=== PATIENT | female | born 1995 | race Caucasian/White ===

== ENCOUNTER 2023-09-04 21:13 | Emergency (ER) | payer OTHER, SELFPAY ==
[2023-09-04 21:28] VITALS: BP 118/67; PULSE 83; RESP 16; TEMP 36.7; O2SAT 99; BMI 23.4
[2023-09-05 04:07] VITALS: BP 103/62; PULSE 77; RESP 16; TEMP 36.2; O2SAT 97
[2023-09-05 06:12] VITALS: BP 116/62; PULSE 69; RESP 16; TEMP 36.4; O2SAT 98
[2023-09-05 06:19] LABS: Appearance Urine Clear; Color Urine Yellow; Glucose Urine UA Negative (Negative); Leukocyte Esterase Urine Negative (Negative); Nitrite Urine Negative (Negative); PH 6.5 (5.0-9.0); Specific Gravity - Urine 1.025 (1.005-1.025); Urine Blood Negative (Negative); Urine Ketones Negative (Negative); Urine Protein Negative (Neg-Trace)
[2023-09-05 06:20] LABS: UPreg QC Valid YES; Urine Pregnancy WEAKLY POSITIVE (NEGATIVE)
--- NOTE | 2023-09-05 06:42 | ED.MEDCLEAR ---
HPI - Medical Clearance General Chief complaint: Medical Clearance Stated complaint: med refill Time Seen by Provider: 09/05/23 06:41 Source: family (significant other ) Mode of arrival: ambulatory Limitations: other (poor historian not participating in hx and pe ) History of Present Illness ED Provider: Wilver CASTELAN HPI Narrative: 27-year-old female hx of opiate use disorder , recently released from incarceration presents to the emergency department demanding methadone. She states she wants methadone now. When I asked her when she last took it she states I do not know. She tells me she last used opiates yesterday ?behind a building?. I asked her if she is and she tells me yes she found out when she was in care home, when I asked her if she is receiving care she tells me yes but then tells me she has not followed up by an OBGYN and has not seen a doctor for this . She states she is taking vitamins intermittently. Patient upset by me asking her questions, she is asleep and does not want to wake up. Significant other in the bed bed snoring and difficult to arouse. Patient becomes angry, awake significant other up and states she does not want to stay here after I told her that this process would require me to speak to recovery to initiate methadone and to give her follow-up if this is what she wanted. She states she has been waiting long enough and she does not want to wait here. She states this places awful and states I am going to [facility] . She is refusing to talk to me. Begins to scream in the department, security called to the bedside. Patient is being uncooperative does not want to slip box changer, does not want to stay in this hospital. States she does not want the methadone from here and she will go find it somewhere else. Made comments to the charge nurse that she wanted to go outside and use as well as smoke cigarettes. We explained to her that this is not allowed on hospital grounds. Patient very angry escorted out by security due to being verbally aggressive, and threatening to staff members. Refusing care at this facility. Did not endorse SI or HI to nursing or mysef. Related Information Allergies Allergy/AdvReac Type Severity Reaction Status Date / Time No Known Allergies Allergy Verified 09/04/23 21:32 Review of Systems Review of Systems: Yes Other (Refusing to answer ) [facility] Past Medical History Attestation statement: The following information was validated with the patient. Source: old records reviewed and nursing notes reviewed Social History Social History Smoked in Last 30 Days: Yes Use of substances other than those prescribed or required for medical reasons: Yes Substance Use Type: Heroin Substance Use Frequency Other:: pt just used yesterday after getting out of care home pt waiting for her methado Last Used Substance: Hours (ago) Any prior treatment program specific to substance use: No Advance Directives: No Advance Directives Information Provided: No Do you have a plan to hurt others: No Plan Physical Exam Vital Signs: Vital Signs: Last Vital Signs Temp 97.5 F 09/05/23 06:12 Pulse 69 09/05/23 06:12 Resp 16 09/05/23 06:12 BP 116/62 09/05/23 06:12 Pulse Ox 98 09/05/23 06:12 O2 Del Method Room Air 09/05/23 06:12 BMI result Body Mass Index 23.4 vss Appearance: Alert.? Oriented X3.? No acute distress.? Head: Normocephalic, atraumatic Eyes: Pupils equal, round and reactive to light.? Neck: Normal inspection.? Neck supple.? Respiratory: No respiratory distress. Skin: Normal skin turgor.? Extremities: 5/5 strength to bilateral upper and lower extremities Neuro: Oriented X 3.? No motor deficit.? Patient got up and refused futher care and examination Course Reevaluation(s) Reevaluation #1: Weakly + urine preg --> patient eloped and was assisted by security as she was verbally aggressive and inappropriate. Time: 07:31 Medical Decision Making Medical Decision Making [facility] Narrative: 704 27 yo f presents demanding methadone now PE- hands off exam- benign Likely opiate abuse and ? ( unclear ) also concerns for misscairage due to active using and poor care. Plan- Labs ( CBC, CMP, HCG), US ( due to weakly positive urine preg ), methadone counseling due to and manager recovery consult to discuss initiating methadone and methadone follow up care. Patient refused all the above Differential Diagnosis Differential Diagnoses: The differential diagnosis associated with the presentation includes Likely opiate abuse and ? ( unclear ) also concerns for misscairage due to active using and poor care. Admission/Observation Consideration of admission/observation: Escalation of care including admission/observation considered unlikely but possible if psych/recovery feels its necessary Lab Data MDM Lab Attestation statement: I reviewed the patient's lab results. Labs: Lab Results 09/05/23 Range/Units 06:11 Urine Color Yellow Urine Appearance Clear Urine pH 6.5 (5.0-9.0) Ur Specific [place] 1.025 (1.005-1.025) Urine Protein Negative (Neg-Trace) mg/dL Urine Glucose (UA) Negative (Negative) mg/dL Urine Ketones Negative (Negative) mg/dL Urine Blood Negative (Negative) Urine Nitrite Negative (Negative) Ur Leukocyte Esterase Negative (Negative) Urine Test WEAKLY POSITIVE H (NEGATIVE) Independent Historian Clinical information obtained from an independent historian. History obtained from or confirmed by: Other (Significant other ( male) ) Chronic Conditions Patient?s care impacted by: Other (substance use disorder ) Social Determinants Patient?s care significantly limited by Social Determinants of Health including: Inadequate housing, Low income, Alcoholism and drug addiction in family, Problems related to primary support group, Unemployment, Problems related to employment and Other Social Determinant of Health Discharge Plan Discharge Clinical Impression: Eloped from emergency department Patient Disposition: Left W/O Completing Treatment Discharge Date/Time: 09/05/23 07:16
--- NOTE | 2023-09-05 07:11 | PC.NURSE ---
No direct coteact with patient however pt notedd yelling at Kari provider when discussing plan to await recovery. Pt also made aware a changeover would be necessary. Pt and boyfriend abruptly left. Security present
== END 2023-09-05 07:16 | disposition left against medical advice (07) ==
PROVIDERS: Emergency Provider Emergency Medicine
DX: F11.10 Opioid abuse, uncomplicated (principal); R45.4 Irritability and anger
CPT/HCPCS: 81003; 81025; 99282; 99284